=== PATIENT | female | born 1990 | race Caucasian/White ===

== ENCOUNTER 2018-04-04 17:47 | Emergency (ER) | END 2018-04-04 23:03 | disposition home or self-care (01) ==

== ENCOUNTER 2018-04-28 22:05 | Emergency (ER) | END 2018-04-29 02:37 | disposition home or self-care (01) ==

== ENCOUNTER 2018-05-08 02:06 | Observation (INO) | END 2018-05-10 17:14 | disposition home or self-care (01) ==

== ENCOUNTER 2018-06-17 22:10 | Emergency (ER) | END 2018-06-18 04:08 | disposition home or self-care (01) ==

== ENCOUNTER 2018-06-23 19:57 | Emergency (ER) | END 2018-06-23 23:53 | disposition home or self-care (01) ==

== ENCOUNTER 2018-06-29 15:02 | Inpatient (IN) | END 2018-06-30 15:50 | disposition home or self-care (01) | DRG 292 ==

== ENCOUNTER 2019-06-09 17:22 | Emergency (ER) | payer BC ==
[~2019-06-09] VITALS: Ht 149.9 cm; Wt 48.9 kg
[~2019-06-09 17:22] MED LIST: FER325 PO; FURO40TA4 PO; HYDR-4011 PO; LORA10TA3 PO; ONDA4TAB14 PO; SILD20TA13 PO
[2019-06-09 17:24] VITALS: BP 123/68; PULSE 93; RESP 17; Ht 149.9 cm; Wt 48.9 kg
--- NOTE | 2019-06-09 18:30 | ERD ---
ER Documentation Chief Complaint Chief Complaint BACK PAIN, CONGESTION, HEADACHE, ONSET 2 DAYS HPI 28-year-old female, presents the emergency department, complaining of 2 days with cough, runny nose and congestion, associated with headache and back pain. The patient denies fever, no chills, no shortness of breath, no leg edema. No reports of abdominal pain, rashes, diarrhea or constipation. ROS All systems reviewed and are negative except as per history of present illness. Medications Home Meds Active Scripts Nebulizer (Compact Compressor Nebulizer) 1 Each Each, EACH MC, #1 Prov:JOSEY SAMANIEGO MD 06/09/19 Albuterol Sulfate* (Albuterol Sulfate* Neb) 0.083%-3 Ml Neb, 2.5 MG NEB Q4 PRN for SHORTNESS OF BREATH, #30 EA Prov:JOSEY SAMANIEGO MD 06/09/19 Amoxicillin* (Amoxicillin*) 500 Mg Cap, 500 MG PO TID for 7 Days, CAP Prov:JOSEY SAMANIEGO MD 06/09/19 Azithromycin* (Zithromax*) 250 Mg Tablet, 250 MG PO .ZPACK DIRECTED, #6 TAB TAKE 500 MG (2 TABS) THE FIRST DAY THEN 250 MG (1 TAB) DAYS 2-5 Prov:JOSEY SAMANIEGO MD 06/09/19 Sildenafil Citrate* (Revatio*) 20 Mg Tab, 20 MG PO TID, #90 TAB Prov:YAMIL RAVI MD 06/30/18 Ondansetron (Ondansetron Odt) 4 Mg Tab.rapdis, 4 MG PO Q6H PRN for NAUSEA AND/OR VOMITING, #20 TAB Prov:JERMAINE MENA NP 06/18/18 Hydrocodone/Acetaminophen (War 5-325 Tablet) 1 Each Tablet, 1 TAB PO Q6H PRN for SEVERE PAIN LEVEL 7-10, #20 TAB Prov:JERMAINE MENA NP 06/18/18 Ferrous Sulfate* (Ferrous Sulfate*) 325 Mg Tabec, 325 MG PO BID for 60 Days, #120 TAB Prov:KENNETH SCOTT MD 05/10/18 Furosemide* (Furosemide*) 40 Mg Tablet, 40 MG PO BID for 60 Days, #60 TAB Prov:MILGROM,KENNETH K MD 05/10/18 Reported Medications Loratadine* (Loratadine*) 10 Mg Tablet, 10 MG PO DAILY, #30 TAB 06/25/18 Allergies Allergies: Coded Allergies: No Known Allergy (Unverified , 06/25/18) PMhx/Soc History of Surgery: Yes (heart surgery, cleft palate surgery) Anesthesia Reaction: No Hx Neurological Disorder: No Hx Respiratory Disorders: No 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 Neck: Full range of motion. No meningismus. Resp: Clear to auscultation bilaterally Cardio: Regular rate and rhythm, no murmurs Abd: Soft, non tender, non distended. Normal bowel sounds Skin: No petechiae or rashes Back: No midline or flank tenderness Ext: No cyanosis, or edema Neur: Awake and alert Psych: Normal Mood and Affect Procedures/MDM At the time of discharge, patient with nontoxic appearance, vital signs stable, no respiratory distress. Differential diagnosis include but not limited to: upper vs lower respiratory infection bacterial/viral/fungal. Asthma, COPD, pneumonitis, allergies, GERD. Less likely pulmonary embolism, endocarditis, cardiac related or malignancy, but still is a possibility. Physical examination and clinical presentation consistent most likely with viral infection with a high risk for early superimposed bacterial infection therefore, antibiotics prophylactically will be prescribed. During the ED course the patient remained stable, no new complaints. Treatment options and clinical impression discussed with the patient who agrees with management. The patient is stable to be treated outpatient and will be discharged home. Some side effects of prescribed medications (headache, rash, nausea, vomiting, diarrhea, interactions with other medications) were reviewed. The patient needs to follow up with the primary care provider in the next 48h. If symptoms persist, worsen or new symptoms develop, then patient should return to the ED immediately. Disclaimer: Inadvertent spelling and grammatical errors are likely due to EHR/dictation software use and do not reflect on the overall quality of patient care. Also, please note that the electronic time recorded on this note does not necessarily reflect the actual time of the patient encounter. Departure Diagnosis: Primary Impression: Cough Additional Impressions: Fever Hx of heart surgery Hx of bacterial pneumonia Condition: Stable Additional Instructions: Thank you very much for allowing us to participate in your care. Your health and safety is our top priority at [facility]. The evaluation in the emergency department has been done to rule out an acute emergency. Chronic, [id number] conditions may have not been evaluated; therefore, you need to follow up with a primary care provider in the next 48h. If symptoms persist, worsen or new symptoms develop, then patient should return to the ED immediately. Call your primary care doctor TOMORROW for an appointment during the next 2-4 days and bring all the information provided. Have prescriptions filled and follow precisely the directions on the label. If the symptoms get worse and your provider is unavailable, return to the Emergency Department immediately. JOSEY SAMANIEGO MD Jun 09, 2019 18:30
[2019-06-09] MEDS ORDERED: ALBU2.5V3 NEB (18:41)
[2019-06-09] MEDS ORDERED: NEBU1KIT3 MC (18:41)
[2019-06-09] MEDS ORDERED: AMOX500C2 PO (18:41)
[2019-06-09] MEDS ORDERED: AZIT250T PO (18:41)
== END 2019-06-09 18:42 | disposition home or self-care (01) ==
LOC: E/R 17:22
DX: R05 Cough (principal); R50.9 Fever, unspecified; I50.9 Heart failure, unspecified; I97.130 Postprocedural heart failure following cardiac surgery; Z87.01 Personal history of pneumonia (recurrent)
CPT/HCPCS: 99283

== ENCOUNTER 2019-08-02 22:52 | Emergency (ER) | payer BC ==
[~2019-08-02] VITALS: Ht 154.9 cm; Wt 49.2 kg
[~2019-08-02 22:52] MED LIST changes: +ALBU2.5V3 NEB; +AMOX500C2 PO; +AZIT250T PO; +NEBU1KIT3 MC; +ONDA8TAB14 PO
[2019-08-02 22:54] VITALS: Ht 154.9 cm; Wt 49.2 kg
[2019-08-03 03:25] VITALS: BP 99/76; PULSE 86; RESP 18
== END 2019-08-03 03:47 | disposition home or self-care (01) ==
LOC: E/R 22:52
DX: R10.13 Epigastric pain (principal); I50.9 Heart failure, unspecified
CPT/HCPCS: 51701; 74176; 80053; 83690; 84484; 84703; 85025; 93005; 99285; Z7610